=== PATIENT | female | born 1990 | race Caucasian/White ===

== ENCOUNTER 2021-01-26 10:55 | Inpatient (IN) | payer OTHER, SELFPAY ==
[2021-01-26] MEDS: Lactated Ringer's 1,000 ML IV SCH ×2 (11:20→15:56)
[2021-01-26] MEDS ORDERED: Butorphanol Tartrate 1 MG/ML VIAL SLOW IVP PRN (11:57)
[2021-01-26] MEDS ORDERED: Promethazine HCl 25 MG/ML VIAL IM PRN ×2 (11:57→15:13)
[2021-01-26] MEDS ORDERED: NS / Oxytocin 40 units/1000ml 1,000 ML IV PRN (11:57)
[2021-01-26] MEDS ORDERED: Calcium Gluc 4.6 MEQ/10 ML (100 MG/ML) SLOW IVP PRN (11:57)
[2021-01-26] MEDS ORDERED: hydrALAZINE 20 MG/ML VIAL SLOW IVP PRN (11:57)
[2021-01-26] MEDS ORDERED: Ondansetron PF 4 MG/2 ML Vial IVP PRN ×2 (11:57→15:13)
[2021-01-26] MEDS ORDERED: HYDROcodone/Acetaminophen 5/325 mg Tablet PO PRN ×2 (11:57)
[2021-01-26] MEDS ORDERED: Lidocaine 1% (PF) 30 ML VIAL SC PRN (11:57)
[2021-01-26] MEDS ORDERED: Ibuprofen 800 MG TAB PO PRN (11:57)
[2021-01-26] MEDS ORDERED: hydrALAZINE 20 MG/ML VIAL ONE (12:00)
[2021-01-26] MEDS ORDERED: Penicillin G Potassium 5 MILL.UNITS in Sodium Chloride 0.9% 100 ML IVPB SCH (12:00)
[2021-01-26] MEDS ORDERED: Lactated Ringer's 1,000 ML IV SCH (12:00)
[2021-01-26] MEDS ORDERED: NS w/ Oxytocin 30 units 500 ML ONE (12:25)
[2021-01-26 12:28] LABS: Mean Corpuscular HGB CONC 35.4 g/dL (32.0-36.0); Mean Corpuscular Hemoglobin 31.9 pg (27.0-33.0); Mean Platelet Volume 12.3 fl (7.4-10.4); Platelet Count 194 10x3/uL (150-450); RBC Distribution Width 12.8 % (11.5-14.5); Red Blood Cell (RBC) Count 4.08 10x6/uL (3.90-5.03); White Blood Cell (WBC) Count 9.3 10x3/uL (3.5-10.5)
[2021-01-26 12:30] VITALS: BMI 37.9
[2021-01-26 12:35] LABS: ALT (SGPT) 13 U/L (8-55); AST (SGOT) 19 U/L (5-34); Albumin 3.7 g/dL (3.5-5.0); Alkaline Phosphatase 149 U/L (40-110); Anion Gap 14 mmol/L (10-20); BUN (Urea Nitrogen) 10 mg/dL (7.0-18.7); Bilirubin, Total 0.3 mg/dL (0.2-1.2); Calc. Creatinine Clearance 201 mL/min (70-130); Carbon Dioxide 19 mmol/L (22-29); Chloride 109 mmol/L (98-107); Globulin 2.5 g/dL (2.4-3.5); Glucose 69 mg/dL (70-105); Potassium 4.3 mmol/L (3.5-5.1); Protein, Total 6.2 g/dL (6.0-8.3); Sodium 138 mmol/L (136-145)
[2021-01-26 12:54] LABS: Hep B Surf Ag Non-Reactive S/CO (NonReactive)
[2021-01-26 12:55] LABS: Syphilis Antibody Nonreactive (Nonreactive); Syphilis Antibody Index 0.03 S/CO (<1.00 Non-Reactive)
[2021-01-26 13:00] LABS: HBSAg Index 0.15 S/CO (0-0.99)
[2021-01-26] MEDS ORDERED: Fentanyl 4 mcg/Bup 0.1% Cadd 100 ML ONE (13:03)
[2021-01-26] MEDS: Fentanyl 4 mcg/Bupivacaine 0.1% Cassette 100 ML EPIDURAL SCH ×2 (14:35→20:55)
[2021-01-26] MEDS ORDERED: Lactated Ringer's 500 ML IV PRN (15:13)
[2021-01-26] MEDS ORDERED: Naloxone HCl 0.4 mg/ml Vial IVP PRN ×2 (15:13)
[2021-01-26] MEDS ORDERED: ePHEDrine 50 MG/ML VIAL SLOW IVP PRN (15:13)
[2021-01-26] MEDS ORDERED: diphenhydrAMINE 50 MG/ML VIAL IVP PRN (15:13)
[2021-01-26] MEDS ORDERED: Acetaminophen 325 MG TAB PO PRN (15:13)
[2021-01-26] MEDS ORDERED: Eucerin (Mineral Oil/Petrolatum,White) 30 gm Jar TOP PRN (15:13)
[2021-01-26] MEDS ORDERED: Communication Order-Pharmacy FS SCH (15:15)
[2021-01-26 21:47] LABS: SARS-CoV-2 PCR NAA for Saliva Not Detected (NotDetected)
[2021-01-27] MEDS ORDERED: Fentanyl 4 mcg/Bup 0.1% Cadd 100 ML ONE (01:02)
[2021-01-27] MEDS: Fentanyl 4 mcg/Bupivacaine 0.1% Cassette 100 ML EPIDURAL SCH (01:11)
[2021-01-27] MEDS ORDERED: Misoprostol 200 MCG TAB ONE (01:24)
[2021-01-27] MEDS ORDERED: NS w/ Oxytocin 30 units 500 ML ONE (02:03)
[2021-01-27] MEDS ORDERED: Preparation H Ointment 28 GM TUBE PR PRN (07:58)
[2021-01-27] MEDS ORDERED: Milk Of Magnesia 30 ML UDCUP PO PRN (07:59)
[2021-01-27] MEDS ORDERED: NS / Oxytocin 40 units/1000ml 1,000 ML IV SCH (08:00)
[2021-01-27] MEDS ORDERED: Bisacodyl 10 MG SUPP PR PRN (08:00)
[2021-01-27] MEDS ORDERED: Ondansetron PF 4 MG/2 ML Vial IVP PRN (08:00)
[2021-01-27] MEDS ORDERED: Varicella virus, LIVE 0.5 ML VIAL SC SCH (08:00)
[2021-01-27] MEDS ORDERED: Promethazine HCl 25 MG/ML VIAL IM PRN (08:00)
[2021-01-27] MEDS ORDERED: HYDROcodone/Acetaminophen 5/325 mg Tablet PO PRN ×4 (08:00→08:06)
[2021-01-27] MEDS ORDERED: Measles/Mumps/Rubella 10 MCG/0.5 ML VIAL SC SCH (08:00)
[2021-01-27] MEDS ORDERED: Zolpidem Tartrate 5 MG TAB PO PRN (08:00)
[2021-01-27] MEDS ORDERED: diphenhydrAMINE 25 MG CAP PO PRN (08:00)
[2021-01-27] MEDS ORDERED: Lanolin Ointment 7 GM TUBE TOP PRN (08:00)
[2021-01-27 08:02] LABS: Hemoglobin 11.2 g/dL (12.0-15.5)
[2021-01-27] MEDS ORDERED: NS w/ Oxytocin 30 units 500 ML IVPB PRN (08:10)
[2021-01-27] MEDS ORDERED: hydrALAZINE 20 MG/ML VIAL SLOW IVP SCH (08:15)
[2021-01-27] MEDS ORDERED: NS w/ Oxytocin 30 units 500 ML IVPB SCH ×2 (08:15)
[2021-01-27] MEDS: Docusate Calcium (SURFAK) 240 MG CAP PO SCH ×2 (09:38→21:55)
[2021-01-27] MEDS: Prenatal Vitamin 1 TAB PO SCH (09:38)
[2021-01-27] MEDS: Penicillin G 2.5 MILL.units 2.5 MILL.UNITS in Premix Bag 1 BAG IVPB SCH ×6 (14:08→21:54)
[2021-01-27] MEDS: Lactated Ringer's 1,000 ML IV SCH ×2 (14:12→14:25)
[2021-01-27] MEDS: Misoprostol 200 MCG TAB VAG SCH ×3 (14:12→21:54)
[2021-01-27] MEDS: Ferrous Sulfate 325 MG TAB PO SCH ×2 (14:12→14:25)
[2021-01-27] MEDS: Ibuprofen 800 MG TAB PO SCH ×2 (14:26→21:55)
[2021-01-27] MEDS ORDERED: Benzocaine-Menthol 82.5 ML CAN TOP PRN (14:42)
[2021-01-28] MEDS: Misoprostol 200 MCG TAB VAG SCH (03:01)
[2021-01-28] MEDS: Penicillin G 2.5 MILL.units 2.5 MILL.UNITS in Premix Bag 1 BAG IVPB SCH ×2 (03:01→05:23)
[2021-01-28] MEDS: Lactated Ringer's 1,000 ML IV SCH (05:23)
[2021-01-28] MEDS: Ibuprofen 800 MG TAB PO SCH ×2 (05:25→15:12)
[2021-01-28] MEDS: Ferrous Sulfate 325 MG TAB PO SCH (08:52)
[2021-01-28] MEDS: Prenatal Vitamin 1 TAB PO SCH (08:52)
[2021-01-28] MEDS: Docusate Calcium (SURFAK) 240 MG CAP PO SCH (08:52)
[2021-01-28 08:57] VITALS: BP 128/83; TEMP 97.5
== END 2021-01-28 16:50 | disposition home or self-care (01) | DRG 807 ==
LOC: CSHLD 10:55 → CSHPP 01-27 04:45
PROVIDERS: ADMIT Obstetrics & Gynecology; ATTEND Obstetrics & Gynecology
PROC: 10E0XZZ Delivery of Products of Conception, External Approach (ICD-10-PCS; principal; 2021-01-27)
PROC: 0HQ9XZZ Repair Perineum Skin, External Approach (ICD-10-PCS; 2021-01-27)
DX: O69.81X0 Labor and delivery complicated by cord around neck, without compression, not applicable or unspecified (principal); Z37.0 Single live birth; Z20.822 Contact with and (suspected) exposure to COVID-19; Z3A.38 38 weeks gestation of pregnancy; O70.9 Perineal laceration during delivery, unspecified; O14.04 Mild to moderate pre-eclampsia, complicating childbirth
CPT/HCPCS: 36415; 51702; 80053; 85014; 85018; 85027; 86780; 86850; 86900; 86901; 87340; 87635; J0360; J2590; U0003; U0005

== ENCOUNTER 2024-07-24 06:02 | Day surgery (SDC) | payer OTHER ==
[2024-07-23 13:33] VITALS: BMI 33.2
[2024-07-23 13:56] LABS: Hematocrit 35.9 % (34.9-44.5); Hemoglobin 12.6 g/dL (12.0-15.5); Mean Corpuscular HGB CONC 35.1 g/dL (32.0-36.0); Mean Corpuscular Hemoglobin 32.1 pg (27.0-33.0); Mean Corpuscular Volume 91.6 fL (81.6-98.3); Mean Platelet Volume 9.9 fL (7.4-10.4); Platelet Count 267 10x3/uL (150-450); RBC Distribution Width 12.3 % (11.5-14.5); Red Blood Cell (RBC) Count 3.92 10x6/uL (3.90-5.03); White Blood Cell (WBC) Count 7.3 10x3/uL (3.5-10.5)
[2024-07-24] MEDS ORDERED: CeleCOXIB 100 MG CAP ONE (06:14)
[2024-07-24] MEDS ORDERED: fentaNYL 50 mcg/mL 1 mL Vial ONE ×2 (06:53→07:31)
[2024-07-24] MEDS ORDERED: PROPOFOL 20 ML ONE (06:53)
[2024-07-24] MEDS ORDERED: Dexamethasone 4 mg/ml Vial ONE ×2 (06:54→08:09)
[2024-07-24] MEDS ORDERED: Ondansetron PF 4 MG/2 ML Vial ONE ×2 (06:54→08:09)
[2024-07-24] MEDS ORDERED: Lidocaine 1% PF 5 ML VIAL ONE (06:54)
[2024-07-24] MEDS ORDERED: Midazolam HCl 2 mg/2 ml Vial ONE (07:02)
[2024-07-24] MEDS ORDERED: Tranexamic Acid 1,000 MG/10 ML VIAL ONE (07:55)
[2024-07-24] MEDS ORDERED: Misoprostol 200 MCG TAB ONE (08:08)
[2024-07-24] MEDS ORDERED: Ketorolac Tromethamine 30 MG (1 mL) VIAL ONE (08:09)
[2024-07-24] MEDS ORDERED: HYDROcodone/Acetaminophen 5/325 mg Tablet ONE (09:06)
== END 2024-07-24 09:50 | disposition home or self-care (01) ==
LOC: CSHSDC 06:02
PROVIDERS: ATTEND Obstetrics & Gynecology
PROC: 10A07ZZ Abortion of Products of Conception, Via Natural or Artificial Opening (ICD-10-PCS; principal; 2024-07-24)
DX: O02.1 Missed abortion (principal); O30.031 Twin pregnancy, monochorionic/diamniotic, first trimester; Z88.1 Allergy status to other antibiotic agents; Z79.899 Other long term (current) drug therapy
CPT/HCPCS: 85027; 86850; 86900; 86901; 88305; J1100; J1885; J2250; J2405; J2704; J3010

== ENCOUNTER 2025-06-01 05:44 | Inpatient (IN) | payer OTHER ==
[2025-06-01] MEDS ORDERED: hydrALAZINE 20 MG/ML VIAL SLOW IVP PRN ×2 (08:54→19:00)
[2025-06-01] MEDS ORDERED: Oxytocin 30 units/NS 500 ML 500 ML IV SCH ×2 (08:54)
[2025-06-01] MEDS ORDERED: Ibuprofen 800 MG TAB PO PRN (08:54)
[2025-06-01] MEDS ORDERED: Lidocaine 1% (PF) 30 ML VIAL SC PRN (08:54)
[2025-06-01] MEDS ORDERED: Ondansetron PF 4 MG/2 ML Vial IVP PRN ×5 (08:54→19:00)
[2025-06-01] MEDS ORDERED: HYDROcodone/Acetaminophen 5/325 mg Tablet PO PRN ×2 (08:54)
[2025-06-01 08:56] VITALS: BMI 36.5
[2025-06-01 08:59] LABS: Hematocrit 33.2 % (34.9-44.5); Hemoglobin 11.4 g/dL (12.0-15.5); Mean Corpuscular Hemoglobin 30.8 pg (27.0-33.0); Mean Corpuscular Volume 89.7 fL (81.6-98.3); Platelet Count 160 10x3/uL (150-450); Red Blood Cell (RBC) Count 3.70 10x6/uL (3.90-5.03); White Blood Cell (WBC) Count 9.38 10x3/uL (3.5-10.5)
[2025-06-01 09:34] LABS: Hep B Surf Ag - L&D Non-Reactive S/CO (NonReactive)
[2025-06-01 09:35] LABS: Syphilis Antibody Index 0.05 S/CO (<1.00 Non-Reactive)
[2025-06-01] MEDS: fentaNYL/Ropivacaine Epidural 100 ML ONE (14:21)
[2025-06-01] MEDS ORDERED: Communication Order-Pharmacy FS SCH ×2 (14:45→17:45)
[2025-06-01] MEDS ORDERED: fentaNYL 2 mcg/Ropivacaine 0.2% Epidural 100 ML CADD EPIDURAL SCH (14:45)
[2025-06-01] MEDS ORDERED: diphenhydrAMINE 50 MG/ML VIAL IVP PRN ×2 (14:45→17:32)
[2025-06-01] MEDS ORDERED: Acetaminophen 325 MG TAB PO PRN (14:45)
[2025-06-01 17:03] LABS: Analyzer IN Cardio CS NICU; Critical Notified By: clumpkins rt; RapidComm Collect By ld rn
[2025-06-01 17:05] LABS: Analyzer IN Cardio CS NICU; Critical Notified By: clumpkins rt; RapidComm Collect By ld rn; pH (Cord, venous) 7.241 (7.250-7.350)
[2025-06-01] MEDS ORDERED: Famotidine/PF 20 mg/2ml Vial SLOW IVP PRN (17:13)
[2025-06-01] MEDS ORDERED: Bicitra 30 ML UDCUP PO PRN (17:13)
[2025-06-01] MEDS ORDERED: Meperidine HCl/PF 25 MG (1 mL) VIAL SLOW IVP PRN (17:32)
[2025-06-01] MEDS ORDERED: Methylergonovine 0.2 MG/ML VIAL IM SCH (18:00)
[2025-06-01] MEDS ORDERED: Lanolin Ointment 7 GM TUBE TOP PRN (19:00)
[2025-06-01] MEDS ORDERED: Bisacodyl 10 MG SUPP PR PRN (19:00)
[2025-06-01] MEDS ORDERED: Boostrix 0.5 ML (Tdap) VIAL (>/=7 yrs of age) IM ONE (19:00)
[2025-06-01] MEDS ORDERED: diphenhydrAMINE 25 MG CAP PO PRN (19:00)
[2025-06-01] MEDS: Ketorolac Tromethamine 30 MG (1 mL) VIAL IVP SCH (19:19)
[2025-06-01] MEDS: SUCCINYLCHOLINE/SOD CL,ISO/PF 200 MG/10 ML SYRINGE FS ONE (21:00)
[2025-06-01] MEDS: Oxytocin 10 UNITS/ML VIAL ONE ×5 (21:00→21:02)
[2025-06-01] MEDS: PROPOFOL 20 ML ONE (21:00)
[2025-06-01] MEDS: Lidocaine 2% MPF 10 ML AMP (For Epidural Use) ONE (21:00)
[2025-06-01] MEDS: Lidocaine 1% PF 5 ML VIAL ONE (21:00)
[2025-06-01] MEDS: Oxytocin 30 units/NS 500 ML 500 ML ONE (21:01)
[2025-06-01] MEDS: Methylergonovine 0.2 MG/ML VIAL ONE (21:01)
[2025-06-01] MEDS: CEFAZOLIN 1 GM VIAL ONE (21:02)
[2025-06-01] MEDS: Ondansetron PF 4 MG/2 ML Vial ONE (21:02)
[2025-06-01] MEDS: Ferrous Sulfate 325 MG TAB PO SCH (21:31)
[2025-06-02] MEDS: Ketorolac Tromethamine 30 MG (1 mL) VIAL IVP PRN (01:04)
[2025-06-02 06:03] LABS: Hematocrit 27.4 % (34.9-44.5); Hemoglobin 9.7 g/dL (12.0-15.5); Mean Corpuscular Hemoglobin 31.8 pg (27.0-33.0); Mean Corpuscular Volume 89.8 fL (81.6-98.3); Platelet Count 120 10x3/uL (130-400); Red Blood Cell (RBC) Count 3.05 10x6/uL (3.90-5.03); White Blood Cell (WBC) Count 8.69 10x3/uL (3.5-10.5)
[2025-06-02] MEDS ORDERED: Bupivacaine HCl 0.5%/Epinephrine 1:200,000/PF 30 ml Vial ONE (07:00)
[2025-06-02] MEDS ORDERED: Bupivacaine 0.25% HCL 30 ML VIAL ONE (07:00)
[2025-06-02] MEDS: HYDROcodone/Acetaminophen 5/325 mg Tablet PO PRN ×2 (09:18→20:04)
[2025-06-02] MEDS: Simethicone Chewable 80 MG TAB PO PRN (13:56)
[2025-06-02] MEDS: Ibuprofen 800 MG TAB PO SCH (21:35)
[2025-06-04 08:48] VITALS: BP 115/72; TEMP 98.1
== END 2025-06-04 14:00 | disposition home or self-care (01) | DRG 788 ==
LOC: CSHLD 05:44 → CSHPP 20:05
PROVIDERS: ADMIT Obstetrics & Gynecology; ATTEND Obstetrics & Gynecology
PROC: 3E033VJ Introduction of Other Hormone into Peripheral Vein, Percutaneous Approach (ICD-10-PCS; principal; 2025-06-01)
PROC: 10D00Z1 Extraction of Products of Conception, Low, Open Approach (ICD-10-PCS; principal; 2025-06-01)
DX: O48.0 Post-term pregnancy (principal); O69.0XX0 Labor and delivery complicated by prolapse of cord, not applicable or unspecified; Z37.0 Single live birth; Z3A.40 40 weeks gestation of pregnancy
CPT/HCPCS: 51702; 82805; 85027; 86780; 86850; 86900; 86901; 87340; J0665; J0690; J1885; J2274; J2405; J2590; J2704; J3010